=== PATIENT | female | born 1950 | race Caucasian/White ===

== ENCOUNTER 2023-03-22 07:46 | Outpatient (AMB) | payer MEDICARE, SELFPAY ==
--- NOTE | 2023-03-22 07:56 | MHC.OFFVIS ---
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 Allergies No Known Allergies Allergy (Verified 03/22/23 07:58) Medication List - Last Reconciled 03/22/23 by Dayana Somers CNP lisinopril 10 mg PO DAILY simvastatin 20 mg PO BEDTIME tretinoin 0.025% appl topical DAILY HPI HPI Comments History of Present Illness Details 72 y/o female patient with HTN, HLD presents for new in-person visit for sleep consultation. Pt reports loud snoring, and occasional gasping arousals. She states that she had big tonsils, but not removed. Pt does not have difficulty falling asleep or staying sleep, wakes up once to go to bathroom. She sleeps 8-9 hrs and can be tired during daytime. Sleep questionnaire: Have you ever been diagnosed with a sleep disorder? No. Have you ever had a sleep study in the past? No. Have you ever been treated for a sleep disorder? No. Do you take medications for a sleep disorder? No. Do you snore? Yes, loudly. Do you wake up gasping at night? Yes, occasionally. Do you have episodes of apneas? No. If yes, are they witnessed? No. Do you have episodes of nocturnal chest pain or dyspnea? No. Do you have difficulty initiating sleep? No. Do you have difficulty maintaining sleep? No. Do you wake up tired? No. Do you have headaches upon awakening? No. Do you wake up with dry mouth or throat? No. Do you have GERD? No. Do you have nocturia? Just once at night. Do you have nocturnal leg cramps? Yes, sometimes. Do you have symptoms of restless legs? No. Do you act out your dreams? No. Sleep hygiene questionnaire: What is your usual sleep routine? Usual bedtime is at 9:30-10 pm; Usual wake up time is at 7:30 am . Do you take naps? Rarely. Is your sleep environment cool, dark, and quiet? Yes. Do you exercise? Walking. Do you take caffeine or other stimulants? No. Do you use electronics in bed? Yes, sometimes. What is your work schedule? N/A. Hypersomnolence questionnaire: Do you have daytime tiredness or fatigue? Yes. Do you easily fall asleep when inactive? No. Have you ever had episodes of sudden weakness? No. Have you ever had episodes of sudden weakness associated with strong emotions? No. PFSH Medical History (Updated 03/22/23 @ 08:47 by Dayana Somers CNP) HLD (hyperlipidemia) HTN (hypertension) Surgical History (Updated 03/22/23 @ 07:59 by DARIA Adan) History of hip replacement H/O sinus surgery H/O section Family History (Updated 03/21/23 @ 09:52 by Gwendolyn May CMA) Mother Bladder cancer Cancer of lung Heart disease Social History Alcohol intake: current Patient Tobacco Use Status: Never used Tobacco Review of Systems Const All systems reviewed & are unremarkable except as noted in HPI and below Physical Exam Vital Signs: Last Vital Signs BP 128/82 03/22/23 07:57 BMI result Body Mass Index 28.1 Const General: cooperative Nutritional Appearance: overweight Orientation/consciousness: patient oriented x3 Neck Neck: Yes full ROM and Yes supple Resp Effort & Inspection: normal respiratory effort and able to speak in complete sentences Neuro General: patient oriented x3, gait normal and moves all extremities Cranial nerves: Yes CN's II-XII intact bilaterally Cognition (Neuro): normal cognition Motor exam (neuro): 5/5 motor strength present throughout, Pronator motor function not present and no tremor noted Psych Appearance: grossly normal Mental Status: mental status grossly normal Speech and movement: Normal speech and movement present Affect: normal affect Attitude: cooperative Assessment & Plan Assessment & Plan (1) Daytime sleepiness: Code(s): R40.0 - Somnolence (2) Loud snoring: Code(s): R06.83 - Snoring Plan Pt is advised to undergo home sleep study to assess for sleep apnea. Will f/u with pt after study to discuss results and appropriate treatment options. Sleep hygiene education provided, limit electronic use before bedtime. Pt to call with any worsening concerns or questions. Orders: Orders RT home sleep study Today R06.83 - Snoring, R40.0 - Somnolence Coding Level of Care Code New Pt Level 3 (38202) Diagnoses Daytime sleepiness R40.0 Loud snoring R06.83
[2023-03-22 07:57] VITALS: BP 128/82; BMI 28.1
== END 2023-03-22 08:34 | disposition home or self-care (01) ==
PROVIDERS: PCP Family Medicine; Visit Provider Nurse Practitioner Family
DX: R40.0 Somnolence (principal); R06.83 Snoring
CPT/HCPCS: 99203

== ENCOUNTER → 2023-03-22 07:46 | Outpatient (BNVA) | payer MEDICARE, SELFPAY | PROVIDERS: PCP Family Medicine; Visit Provider Nurse Practitioner Family | DX: R40.0 Somnolence (principal); R06.83 Snoring | CPT/HCPCS: 99202 ==

== ENCOUNTER → 2023-05-02 07:51 | Outpatient (REF) | payer MEDICARE, SELFPAY | LOC: HO.SL 07:51 | PROVIDERS: PCP Family Medicine; Visit Provider Nurse Practitioner Family | DX: R06.83 Snoring (principal); R40.0 Somnolence; G47.33 Obstructive sleep apnea (adult) (pediatric) | CPT/HCPCS: 95806 ==

== ENCOUNTER → 2023-05-02 08:20 | Outpatient (BNV) | payer MEDICARE, SELFPAY | PROVIDERS: PCP Family Medicine; Visit Provider Psychiatry & Neurology Neurology | DX: G47.33 Obstructive sleep apnea (adult) (pediatric) (principal) | CPT/HCPCS: 95806 ==

== ENCOUNTER 2023-11-21 15:10 | Outpatient (AMB) | payer MEDICARE, SELFPAY ==
[2023-11-21 15:22] VITALS: BMI 27.8
--- NOTE | 2023-11-21 15:22 | MHC.OFFVIS ---
Vital Signs 11/21/23 15:22 Height 5 ft 3 in Weight 157 lb BMI 27.8 Intake Visit Reasons: 4 mo f/u-CONF Intake Note: Patient presents for follow up. patient has had a little bit of issues with [facility]. patient needs supplies. Allergies No Known Allergies Allergy (Verified 11/21/23 15:26) HPI Comments Details: 73-yr-old female presents for follow-up visit of sleep apnea. Pt has had HST, which showed AHI 12/hr and O2 barry 76% w/ average SpO2 95% and SpO2 < 88% x's 9 minutes. Since she has received a APAP machine. Pt initially tried a nasal pillow mask, but it would stay on her head when sleeping. She had a f/u mask fitting iat [facility] over the summer, and was given a Dream style masks which fit her much better. Unfortunately, this mask has not been replaced and has begun to stretch out. Since adjusted to using her PAP device, she is sleeping better, not snoring, and feeling better overall. She does wake up with dry mouth at times. She does note that her residual AHI when using PAP tx is significantly reduced. [facility] Medical History HLD (hyperlipidemia) HTN (hypertension) Surgical History History of hip replacement H/O sinus surgery H/O section Family History Mother Bladder cancer Cancer of lung Heart disease Social History Alcohol intake: current Patient Tobacco Use Status: Never used Tobacco Review of Systems Const All systems reviewed & are unremarkable except as noted in HPI and below Physical Exam Vital Signs: BMI result Body Mass Index 27.8 Const General: no acute distress Orientation/consciousness: patient oriented x3 HEENT Other: Mallampati stage Resp Effort & Inspection: normal respiratory effort and able to speak in complete sentences Auscultation: clear to auscultation bilaterally Cardio Rate: regular rate Rhythm: regular rhythm Neuro General: patient oriented x3 Psych Mental Status: mental status grossly normal Speech and movement: Clear speech present Attitude: cooperative Results Reviewed Results Reviewed: PAP compliance report- see HPI Assessment & Plan Assessment & Plan (1) Obstructive sleep apnea: Comment: AHI 12/hr and O2 barry 76% w/ average SpO2 95% and SpO2 < 88% x's 9 minutes. Code(s): G47.33 - Obstructive sleep apnea (adult) (pediatric) Category: Medical Plan Continue APAP 5-20 cmH2O nightly > 4 hours, as pt continues to have good clinical effect from use. Will request new PAP supplies. Clean CPAP machine and supplies routinely. Change CPAP supplies routinely. Pt to contact us or respiratory compnay with any questions or concerns. Coding Level of Care Code Est Pt Level 4 (95795) Diagnoses Obstructive sleep apnea G47.33
== END 2023-11-21 16:06 | disposition home or self-care (01) ==
PROVIDERS: PCP Family Medicine; Visit Provider Nurse Practitioner Family
DX: G47.33 Obstructive sleep apnea (adult) (pediatric) (principal)
CPT/HCPCS: 99214

== ENCOUNTER → 2023-11-21 15:10 | Outpatient (BNVA) | payer MEDICARE, SELFPAY | PROVIDERS: PCP Family Medicine; Visit Provider Nurse Practitioner Family | DX: G47.33 Obstructive sleep apnea (adult) (pediatric) (principal); Z99.89 Dependence on other enabling machines and devices | CPT/HCPCS: 99212 ==

== ENCOUNTER 2024-09-03 08:21 | Outpatient (AMB) | payer MEDICARE, SELFPAY ==
--- OUTSIDE RECORDS SUMMARY | 2024-09-03 08:25 | XMS_ITS | Data Portability ---
Author Organization [facility], REESE Address [address] [place] [address] Care Team Providers Care Outreach Worker Name Role Phone SELWYN FERNANDES Referring Provider ZEN YBARRA Primary Care Provider DIANA KEENE OTHER Assessment No assessment recorded. Plan of Treatment Reminders Order Date Submit Date Provider Last Modified By Organization Details Last Modified Time Details Appointments None record ed. Lab None record ed. Referral None record ed. Procedures None record ed. Surgeries None record ed. Imaging None record ed. Medication Orders None record ed. Patient TargetsNo targets recorded. Patient InstructionsNo instructions recorded. Reason for Referral None Reported. Results Created Date Observation Date Name Description Value Unit Range Abnormal Flag Note LastModifiedBy Organization Detail LastModifiedTime 06/04/19 25 06/03/2024 CBC AND PLT WBC 5.4 10x3/ uL 4.5-11 .0 normal Not Available [facility] (Main Lab) [address] [place], [address], 06/03/2024 19:46:14 06/04/19 25 06/03/2024 CBC AND PLT RBC 2.96 10X6/ uL 4.00-5 .20 low Not Available [facility] (Main Lab) [address] [place], [address], 06/03/2024 19:46:14 06/04/19 25 06/03/2024 CBC AND PLT hemoglobin 9.7 g/dL 11.7-1 6.3 low Not Available [facility] (Main Lab) [address], [place], [address], 06/03/2024 19:46:14 06/04/19 25 06/03/2024 CBC AND PLT hematocrit 29.3 % 35.0-4 7.0 low Not Available [facility] (Main Lab) [address], [place], [address], 06/03/2024 19:46:14 06/04/19 25 06/03/2024 CBC AND PLT MCV 99.0 fL 80.0-1 00.0 normal Not Available [facility] (Main Lab) [address], [place], [address], 06/03/2024 19:46:14 06/04/19 25 06/03/2024 CBC AND PLT MCH 32.8 pg 25.0-3 2.0 high Not Available [facility] (Main Lab) [address], [place], [address], 06/03/2024 19:46:14 06/04/19 25 06/03/2024 CBC AND PLT MCHC 33.1 g/dL 31.0-3 7.0 normal Not Available [facility] (Main Lab) [address], [place], [address], 06/03/2024 19:46:14 06/04/19 25 06/03/2024 CBC AND PLT RDW SD 45.2 fL 37.0-5 4.0 normal Not Available [facility] (Main Lab) [address], [place], [address], 06/03/2024 19:46:14 06/04/19 25 06/03/2024 CBC AND PLT RDW CV 12.5 % 11.0-1 6.0 normal Not Available [facility] (Main Lab) [address], [place], [address], 06/03/2024 19:46:14 06/04/19 25 06/03/2024 CBC AND PLT platelet count 278 10x3/ uL 150-40 0 normal Not Available [facility] (Main Lab) [address], [place], [address], 06/03/2024 19:46:14 06/04/19 25 06/03/2024 CBC AND PLT MPV 9.3 fL 8.2-12 .2 normal Not Available [facility] (Main Lab) [address], [place], [address], 06/03/2024 19:46:14 06/04/19 25 06/03/2024 CBC AND PLT nucleated RBCs 0 /100W BC 0-1 normal Not Available [facility] (Main Lab) [address], [place], [address], 06/03/2024 19:46:14 06/04/19 25 06/03/2024 CBC AND PLT seg 51 % 29-66 normal Not Available [facility] (Main Lab) [address] [place], [address], 06/03/2024 19:46:14 06/04/19 25 06/03/2024 CBC AND PLT lymph 39 % 15-49 normal Not Available [facility] (Main Lab) [address] [place], [address], 06/03/2024 19:46:14 06/04/19 25 06/03/2024 CBC AND PLT monos 7 % 2-14 normal Not Available [facility] (Main Lab) [address] [place], [address], 06/03/2024 19:46:14 06/04/19 25 06/03/2024 CBC AND PLT eosins 1 % 0-5 normal Not Available [facility] (Main Lab) [address] [place], [address], 06/03/2024 19:46:14 06/04/19 25 06/03/2024 CBC AND PLT basophil 1 % 0-2 normal Not Available [facility] (Main Lab) [address] [place], [address], 06/03/2024 19:46:14 06/04/19 25 06/03/2024 CBC AND PLT meta,myelo,p ro 1 % 0-5 normal Not Available [facility] (Main Lab) [address] [place], [address], 06/03/2024 19:46:14 06/04/19 25 06/03/2024 CBC AND PLT absolute neut count 2.83 10x3/ uL 1.50-7 .00 normal CC'd Provi ders: ,,,,, ,,,, ,,,,, ,,,, ,,,,, ,,,, Not Available [facility] (Main Lab) [address] [place], [address], 06/03/2024 19:46:14 06/04/19 25 06/03/2024 CBC AND PLT specimen number [id number] Not Available [facility] (Main Lab) [address] [place], [address], 06/03/2024 19:46:14 06/04/1906/03/2024 CBC AND PLT performing lab: SEE NOTE ML - [facility], [address] [place] [address] Not Available [facility] (Main Lab) [address] [place], [address], 06/03/2024 19:46:14 06/04/19 25 06/03/2024 CREAT ININE creatinine 0.70 mg/dL 0.55-1 .02 normal CC'd Provi ders: ,,,,, ,,,, ,,,,, ,,,, ,,,,, ,,,, Not Available [facility] (Main Lab) [address], [place], [address], 06/03/2024 20:00:11 06/04/19 25 06/03/2024 CREAT ININE specimen number [id number] Not Available [facility] (Main Lab) [address], [place], [address], 06/03/2024 20:00:11 06/04/19 25 06/03/2024 CREAT ININE performing lab: SEE NOTE ML - [place] [facility], [address] [place] [address] Not Available [facility] (Main Lab) [address] [place], [address], 06/03/2024 20:00:11 06/04/19 25 06/03/2024 LIVER PROFI LE total bilirubin 0.2 mg/dL 0.2-1. 3 normal Not Available [facility] (Main Lab) [address] [place], [address], 06/03/2024 20:00:14 06/04/19 25 06/03/2024 LIVER PROFI LE alk phos 69 U/L 33-149 normal Not Available [facility] (Main Lab) [address], [place], [address], 06/03/2024 20:00:14 06/04/19 25 06/03/2024 LIVER PROFI LE AST/SGOT 29 U/L 15-37 normal Not Available [facility] (Main Lab) [address] [place], [address], 06/03/2024 20:00:14 06/04/19 25 06/03/2024 LIVER PROFI LE ALT/SGPT 24 U/L 13-56 normal Not Available [facility] (Main Lab) [address] [place], [address], 06/03/2024 20:00:14 06/04/19 25 06/03/2024 LIVER PROFI LE total protein 7.4 g/dL 6.4-8. 3 normal Not Available [facility] (Main Lab) [address] [place], [address], 06/03/2024 20:00:14 06/04/19 25 06/03/2024 LIVER PROFI LE albumin 2.9 g/dL 3.2-4. 8 low Not Available [facility] (Main Lab) [address] [place], [address], 06/03/2024 20:00:14 06/04/19 25 06/03/2024 LIVER PROFI LE globulin 4.5 g/dL 2.0-4. 2 high Not Available [facility] (Main Lab) [address] [place], [address], 06/03/2024 20:00:14 06/04/19 25 06/03/2024 LIVER PROFI LE alb/glob ratio 0.6 1.0-2. 2 low Not Available [facility] (Main Lab) [address] [place], [address], 06/03/2024 20:00:14 06/04/19 25 06/03/2024 LIVER PROFI LE bilirubin,di rect <0.1 mg/dL 0.0-0. 3 normal CC'd Provi ders: ,,,,, ,,,, ,,,,, ,,,, ,,,,, ,,,, Not Available [facility] (Main Lab) [address] [place], [address], 06/03/2024 20:00:14 06/04/19 25 06/03/2024 LIVER PROFI LE specimen number [id number] Not Available [facility] (Main Lab) [address], [place], [address], 06/03/2024 20:00:14 06/04/19 25 06/03/2024 LIVER PROFI LE performing lab: SEE NOTE ML - [facility], [address], [place] [address] Not Available [facility] (Main Lab) [address], [place], [address], 06/03/2024 20:00:14 Result Notes None recorded. Problems Name Problem SNOMED Code Status Onset Date Resolution Date Notes Provider Name and Address Organization Details Recorded Time Bacteremia 4542884 Active 2024 Melissa Jiménez RN [address], [place], [address], [facility] 5 08:25:42 Acute pyelonephritis 24423881 Active 2024 Melissa Jiménez RN [address], [place], [address], [facility] 5 08:26:04 Problem Notes None recorded. Procedures Surgical History Date Name Laterality Status Provider Name and Address Organization Details Recorded Time 06/04/19 25 PIV Discontinuation completed Concepcion Adriane RN [address], [place], [address], [facility] 06/03/2024 14:14:57 06/04/19 25 IVS First Infusion completed Concepcion Adriane TOMAS [address], [place], [address], [facility] 06/03/2024 14:21:14 06/03/19 25 IVS First Infusion completed Melvina Niño RN [address], [place], [address], [facility] 06/02/2024 13:15:40 06/02/19 25 IVS [facility] completed NANO Albarran [address], [place], [address], [place] [facility] 06/01/2024 13:54:19 06/01/19 25 IVS First Infusion completed Dian lter [address], [place], [address], [facility] [place] 05/31/2024 13:36:49 05/31/19 25 IVS First Infusion completed Concepcion Adriane RN [address], [place], [address], [facility] 05/30/2024 14:58:48 [facility] 05/30/2024 15:28:53 Section completed [facility] 05/30/2024 15:29:01 Imaging Results None recorded. Procedure Notes None recorded. Medical Equipment None Reported. Allergies No known drug allergies Medications Name Sig Start Date Stop Date Status Note LastModified by Organization Details LastModified Time tretinoin 0.1 % topical cream APPLY AT BEDTIME ONTO AFFECTED AREAS ON FACE active Not Available Not Available No t Available metformin 500 mg tablet TAKE 1 TABLET BY MOUTH EVERY DAY WITH MEAL active Not Available Not Available No t Available ceftriaxone 2 gram intravenous solution Inject 2 g every day by intravenous route. active Not Available Not Available No t Available sulfamethoxa zole 400 mg-trimethop rim 80 mg tablet TAKE 1 TABLET BY MOUTH TWICE A DAY active Not Available Not Available No t Available tretinoin 0.025 % topical cream APPLY SMALL AMOUNT TO AFFECTED AREA(S) ON FACE & HAND EVERY EVENING AND COVER WITH BANDAGE OVERNIGHT active Not Available Not Available No t Available tretinoin 0.05 % topical cream APPLY SMALL AMOUNT TO AFFECTED SKIN NIGHTLY AND COVER WITH BANDAGE OVERNIGHT UNTIL FOLLOW UP active Not Available Not Available No t Available simvastatin 20 mg tablet TAKE 1 TABLET BY MOUTH EVERYDAY AT BEDTIME active Not Available Not Available No t Available lisinopril 10 mg tablet TAKE 1 TABLET BY MOUTH EVERY DAY active Not Available Not Available No t Available Vitals Date Recorded Body height Body mass index (BMI) Body weight Body temperature Heart rate Respiratory rate Systolic blood pressure Diastolic blood pressure Provider Name and Address Organization Details Last Updated DateTime 160.02 cm 27.6 kg/m2 44818.4 1 g 98.2 [degF] 55 /min 18 /min 126 mm[Hg] 62 mm[Hg] Mariya Villasenor [address], [place], [address], [facility] 13:37:25 Date Recorded Body height Body temperature Body mass index (BMI) Body weight Respiratory rate Heart rate Systolic blood pressure Diastolic blood pressure Provider Name and Address Organization Details Last Updated DateTime 5 160.02 cm 97.4 [degF] 27.6 kg/m2 94680.4 1 g 18 /min 58 /min 114 mm[Hg] 63 mm[Hg] Gemma Flores LPN [address], [place], [address], [facility] 13:05:57 Date Recorded Body height Body mass index (BMI) Body weight Respiratory rate Body temperature Heart rate Systolic blood pressure Diastolic blood pressure Provider Name and Address Organization Details Last Updated DateTime 5 160.02 cm 27.6 kg/m2 97058.4 1 g 18 /min 97.9 [degF] 60 /min 126 mm[Hg] 67 mm[Hg] Melvina Niño RN [address], [place], [address], [facility] 13:05:30 Date Recorded Body height Body mass index (BMI) Body weight Body temperature Heart rate Respiratory rate Systolic blood pressure Diastolic blood pressure Provider Name and Address Organization Details Last Updated DateTime 5 160.02 cm 27.6 kg/m2 50599.4 1 g 98.4 [degF] 60 /min 18 /min 122 mm[Hg] 72 mm[Hg] Carlene Forrest RN [address], [place], [address], [facility] 14:13:41 Date Recorded Body height Body mass index (BMI) Body weight Body temperature Heart rate Respiratory rate Systolic blood pressure Diastolic blood pressure Provider Name and Address Organization Details Last Updated DateTime 5 160.02 cm 27.6 kg/m2 79190.4 1 g 97.9 [degF] 62 /min 18 /min 130 mm[Hg] 80 mm[Hg] Yumiko La [facility] 5 09:28:36 Social History Question Answer Notes LastModified by Organizat ion Details LastModified Time Tobacco Smoking Status Never Smoker Leela Granda [facility] [place] 05/30/2024 15:34:14 Travel In The Last 12 Months Formerly [facility] Information not available 05/30/2024 Pets 0 Information no t available 05/30/2024 Hobbies/Sports/Ex ercise Variety - Moderate Information not available 05/30/2024 Assisted Living Or Care Home Resident No Information not available 05/30/2024 What Was The Date Of Your Most Recent Tobacco Screening? 06/04/2024 [email or web address] Information not available 06/04/2024 Have You Ever Been Counseled For Unhealthy Alcohol Use? No Information not available 05/30/2024 What Is Your Relationship Status? Information not available 05/30/2024 Has Tobacco Cessation Counseling Been Provided? No Information not available 05/30/2024 Sex: Unknown Functional Status Question Answer Note LastModified by [employer] Details LastModified Time Do you use any illicit or recreational drugs? No Information not available 05/30/2024 Do you or have you ever used any other forms of tobacco or nicotine? No [email or web address] Information not available 06/04/2024 What is your level of alcohol consumption? Occasional Information not available 05/30/2024 Are you currently employed? No Information not available 05/30/2024 Mental Status None recorded. Family History Relationship Description Onset Age of this Age Resolved Age Notes LastModified by Organization Details LastModified Time Father Heart disease rviloria Not available 2024 15:29:33 Father Hypertensive disorder rviloria Not available 2024 15:29:46 Mother Heart disease rviloria Not available 2024 15:29:33 Mother Hypertensive disorder rviloria Not available 2024 15:29:46 Medical History Condition Response Diabetes Y Kidney Infection Y Hypertension Y High Cholesterol Y Gynecological HistoryNo gynecological history recorded. Obstetrics History GPAL:G 0 P 0 0 0 0 Past Encounters Encounter ID Performer Location Encounter Start Date Encounter Closed Date Diagnosis/Indication Diagnosis SNOMED-CT Code Diagnosis ICD10 Code Diagnosis Note [id number] Concepcion Adriane RN [place]S [place] [address] [address] [facility] [address] 05/30/2024 12:42:13 05/30/2024 15:01:45 Acute pyelonephritis 57634520 N10 [id number] Hamilton Rodriguez RN [place]S [place] [address],[place] [address] [facility] [facility] [facility] [place] [address] 3 05/31/2024 13:20:54 05/31/2024 14:52:26 Bacteremia 6297676 R78.81 N10 [id number] Cheryl Albarran PN [place]S [place] [address] [facility] [place] [address] 06/01/2024 12:58:17 06/01/2024 13:55:56 Acute pyelonephritis 55631111 N10 [id number] Melvina Niño RN [place]S [place] [address],[place] [address] [facility] [place] [address] 06/02/2024 13:00:22 06/02/2024 13:44:37 Bacteremia 9061412 R78.81 N10 [id number] Carlene Forrest RN [place]S [place] [address],[place] [address] [facility] [place] [address] 06/03/2024 12:52:15 06/03/2024 14:23:14 Bacteremia 7426720 R78.81 [id number] PAVEL STORY [place] [address],[place] [address] [facility] [place] [address] 06/04/2024 09:19:35 06/04/2024 14:23:44 Bacteremia 1252151 R78.81 Plan:1. Patient completed an 8-day course of Rocephin 2 g IV daily, she is to transition to Bactrim to complete a 10-day course.2. Patient is returning to [facility] and can follow-up with IDA3. Reviewed blood work with her at bedside and provided a multi mission helicopter aircrewman Roslyn Hinds APRN seeing patient incident to Dr. Clay Mcneil MD based on the plan of care documented on 06/04/2024. Health Concerns Section Related Observation LastModified by Organization Detai ls LastModified Time None Recorded Concern Status LastModified by Organization Details LastModified Time None Recorded Advance Directives Directive None Recorded Payers Insurance Date Sequence Insurance Name Policy Number Policy Chi Covered Member ID Chi Member ID Guarantor Name 07/22/2024 2 [place] [id number] Shivani Rhodes [id number] Shivani Rhodes 07/22/2024 1 [place] Shivani Rhodes [id number] Shivani Flores Nicholasmaricruz Notes Date Note Type Note Provider Name and Address Organization Details Recorded Time 5 text/html No complaints at this time. Evens abreu [address], [place], [address], [facility] [place] 05/31/2024 14:35:55 5 text/html No complaints at this time. Gemma Flores LPN [address], [place], [address], [facility] [place] 06/01/2024 13:55:50 5 text/html Patient denies any problems today Melvina Niño RN [address], [place], [address], [facility] [place] 06/02/2024 13:44:31 5 text/html pt stated she was feeling good Concepcion Adriane [address], [place], [address], [facility] 06/03/2024 14:23:06 5 text/html CHIEF COMPLAINT: E. coli bacteremia and pyelonephritis.PROBLEMS:1. May 27, 2024, presentation with right-sided flank pain and clinicalsymptomatology consistent with a passed kidney stone and pyelonephritis, withassociated Escherichia coli bacteremia.2. Abdominal imaging with right kidney fullness. Any potential kidney stonewas obstructed by hip prosthesis.COMORBIDITIES:1. Hypertension.2. Hyperlipidemia.3. Prediabetes.4. Visiting from [place] with plan to return early next week.ANTIBIOTIC ALLERGIES: NONE.ANTIBIOTICS: Ceftriaxone day #8 of 8, then to transition to bactrim for 2 days to complete a 10 day course.SUBJECTIVE:06/04/2024: Patient seen in hospital follow-up. She feels back to 100%. No fevers chills or night sweats. No nausea vomiting or diarrhea. Overall she is doing very well. She is returning to [place]. Clay Mcneil MD [address], [place], [address], [facility] [place] 06/12/2024 14:45:49 OBGyn Episode No OBEpisode recorded.
[2024-09-03 08:41] VITALS: BP 120/78; PULSE 69; O2SAT 98; BMI 28.0
--- NOTE | 2024-09-03 08:41 | A.OFFVIS_ITS ---
Vital Signs 09/03/24 08:41 Height 5 ft 3 in Weight 158 lb BMI 28.0 BP 120/78 Blood Pressure Location Lt brachial Position Sitting Pulse 69 Pulse Source Pulse Oximeter Pulse Oximetry (%) 98 Oxygen Delivery Method Room Air Intake Visit Reasons: Follow up Intake Note: Patient presents follow up for VETO; compliance in chart [employer] Required: No Accompanied by: Self / Same As Patient Allergies No Known Allergies Allergy (Verified 09/03/24 08:44) HPI Comments Details: History of Present Illness The patient is a 74-year-old female presenting with a follow-up for sleep apnea management. The patient has been using a CPAP machine with an APAP setting of 4-15 cm H2O and EPR of 2. The compliance report from May 29, 2024, to August 26, 2024, shows an overall usage of 57%, with usage greater than 4 hours at 50% and an average usage on days used of 5 hours and 29 minutes. The maximum pressure recorded was 10.8 cm H2O, with a median leak of 4.4 L/min and a residual AHI of 1.7 per hour. The patient reports no problems with the CPAP machine. CPAP compliance review: Does patient have sufficient PAP supplies? Yes Does patient clean PAP supplies on a regular basis? Yes Does the patient use distilled water in their PAP machine water reservoir? Yes PAP compliance report reviewed. Compliance report date range: May 29, 2024 - August 26, 2024 Overall usage: 57 percent Usage greater than 4 hours: 50 percent PAP setting: APAP 4-15 cmH2O with EPR 2 Average usage on days used: 5 hours and 29 minutes Average mask leakage: 4.4 LPM Residual AHI: 1.7 per hour [facility] Medical History HLD (hyperlipidemia) HTN (hypertension) Surgical History History of hip replacement H/O sinus surgery H/O section Family History Mother Bladder cancer Cancer of lung Heart disease Social History Alcohol intake: current Patient Tobacco Use Status: Never used Tobacco Physical Exam Vital Signs: Last Vital Signs Pulse 69 09/03/24 08:41 BP 120/78 09/03/24 08:41 Pulse Ox 98 09/03/24 08:41 Oxygen Delivery Method Room Air 09/03/24 08:41 BMI result Body Mass Index 28.0 Const General: no acute distress Orientation/consciousness: patient oriented x3 Resp Effort & Inspection: normal respiratory effort and able to speak in complete sentences Neuro General: patient oriented x3 Psych Mental Status: mental status grossly normal Speech and movement: Clear speech present Attitude: cooperative Assessment & Plan Assessment & Plan (1) Obstructive sleep apnea: Comment: AHI 12/hr and O2 barry 76% w/ average SpO2 95% and SpO2 < 88% x's 9 minutes. Code(s): G47.33 - Obstructive sleep apnea (adult) (pediatric) Category: Medical Plan Discussion Notes I reviewed the CPAP compliance report with the patient, noting the overall usage and encouraging her to use the CPAP more regularly. We discussed following up in one year or sooner if needed. Plan - Encourage the patient to increase CPAP usage to improve compliance and effectiveness. - Schedule a follow-up appointment in one year, with the option to return sooner if issues arise. - Continue to use APAP 4-15 cmH2O with EPR 2 nightly with a goal of greater than 4 hours nightly, as patient is experiencing good clinical effect from use. - Clean and change PAP supplies routinely, including filters, masks, tubing, and water reservoir. - Use distilled water in PAP water reservoir. Patient was informed and verbally consented to the use of an ambient scribe for clinic note documentation during this visit. Coding Level of Care Code Est Pt Level 3 (06378) Diagnoses Obstructive sleep apnea G47.33
== END 2024-09-03 10:13 | disposition home or self-care (01) ==
LOC: HO.HSMS 08:22
PROVIDERS: PCP Family Medicine; Visit Provider Nurse Practitioner Family
DX: G47.33 Obstructive sleep apnea (adult) (pediatric) (principal)
CPT/HCPCS: 99213

== ENCOUNTER → 2024-09-03 08:21 | Outpatient (BNVA) | payer MEDICARE, SELFPAY | PROVIDERS: PCP Family Medicine; Visit Provider Nurse Practitioner Family | DX: G47.33 Obstructive sleep apnea (adult) (pediatric) (principal); Z99.89 Dependence on other enabling machines and devices | CPT/HCPCS: 99212 ==